=== PATIENT | male | born 1995 | race African-American/Black ===

== ENCOUNTER 2025-02-05 11:07 | Emergency (ER) | payer BC ==
--- NOTE | 2025-02-05 11:32 | ER ---
Nurse's Notes [facility] Name: Faisal Rivera Age: 29 yrs Sex: Male : 1995 Arrival Date: 02/05/2025 Time: 11:07 Bed IW1 Private MD: Diagnosis: Encounter for general adult medical examination without abnormal findings Presentation: 02/05 11:28 Chief complaint: Patient states: Here to have wellness exam. Coronavirus screen: Client ss denies travel out of the [place] in the last 14 days. Ebola Screen: Patient denies exposure to infectious person. Patient denies travel to an Ebola-affected area in the 21 days before illness onset. Initial Sepsis Screen: Does the patient meet any 2 criteria? No. Patient's initial sepsis screen is negative. Does the patient have a suspected source of infection? No. Patient's initial sepsis screen is negative. Risk Assessment: Do you want to hurt yourself or someone else? Patient reports no desire to harm self or others. Onset of symptoms is unknown. 11:28 Method Of Arrival: Ambulatory ss 11:28 Acuity: GERALD 5 ss Historical: - Allergies: 11:29 No Known Allergies; ss - Home Meds: 11:29 None [Active]; ss - PMHx: 11:29 None; ss - PSHx: 11:29 None; ss - Infectious Disease History:: Denies. - Social history:: Smoking status: Patient denies any tobacco usage or history of. Screenin:29 Abuse screen: Denies threats or abuse. Denies injuries from another. Nutritional ss screening: No deficits noted. Tuberculosis screening: Never had TB. Assessment: 11:29 General: Appears in no apparent distress. comfortable, Behavior is calm, cooperative. ss Pain: Denies pain. Neuro: Level of Consciousness is awake, alert, obeys commands, Oriented to person, place, time, situation. Derm: Skin is pink, warm \T\ dry. normal. Vital Signs: 11:28 BP 122 / 71; Pulse 69; Resp 14; Temp 98(TE); Pulse Ox 100% on R/A; Pain 0/10; ss 11:28 Pain Scale: Adult ss ED Course: 11:12 Patient arrived in ED. cj3 11:24 Yony Cardenas DO is Attending Physician. ms3 11:29 Triage completed. ss 11:29 Arm band placed on right wrist. ss 11:29 Patient has correct armband on for positive identification. ss 11:29 No provider procedures requiring assistance completed. Patient did not have IV access ss during this emergency room visit. 11:31 Javad Jaffe DO is Referral Physician. ms3 11:39 Sri Paiz, RN is Primary Nurse. ss Administered Medications: No medications were administered Medication: 11:29 VIS not applicable for this client. ss Outcome: 11:32 Discharge ordered by MD. ms3 11:39 Discharged to home ambulatory, ss 11:39 Condition: good 11:39 Discharge instructions given to patient, Instructed on discharge instructions, follow up and referral plans. Demonstrated understanding of instructions, follow-up care, 11:39 Patient left the ED. ss Signatures: Sri Paiz, PADMINI RN Yony Cardenas DO DO ms3 Mirela Christopher cj3 Corrections: (The following items were deleted from the chart) 11:30 11:28 Chief complaint: Patient states: Here to have wellness check up ss ss
--- NOTE | 2025-02-05 11:32 | EDPHYS ---
Physician Documentation [facility] Name: Faisal Rivera Age: 29 yrs Sex: Male : 1995 Arrival Date: 02/05/2025 Time: 11:07 Bed IW1 Private MD: ED Physician Yony Cardenas HPI: 02/05 11:39 This 30 yrs old Male presents to ER via Ambulatory with complaints of general exam. ms3 11:39 30-year-old male with no past medical history presents to the emergency department for ms3 general exam. Patient denies pain, nausea, vomiting, shortness of breath, chest pain.. Historical: - Allergies: 11: No Known Allergies; ss - Home Meds: 11: None [Active]; ss - PMHx: : None; ss - PSHx: 11: None; ss - Infectious Disease History:: Denies. - Social history:: Smoking status: Patient denies any tobacco usage or history of. ROS: 11:39 Constitutional: Negative for fever, and chills. Cardiovascular: Negative for chest ms3 pain, and palpitations. Respiratory: Negative for shortness of breath, cough, wheezing, and pleuritic chest pain, Abdomen/GI: Negative for abdominal pain, nausea, vomiting, diarrhea, and constipation, MS/Extremity: Negative for injury and deformity, Skin: Negative for injury, rash, and discoloration, Exam: 11:39 Constitutional: This is a well developed, well nourished patient who is awake, alert, ms3 and in no acute distress. Cardiovascular: Regular rate and rhythm with a normal S1 and S2. No gallops, murmurs, or rubs. Normal PMI, no JVD. No pulse deficits. Respiratory: Lungs have equal breath sounds bilaterally, clear to auscultation and percussion. No rales, rhonchi or wheezes noted. No increased work of breathing, no retractions or nasal flaring. Abdomen/GI: Soft, non-tender, with normal bowel sounds. No distension or tympany. No guarding or rebound. No evidence of tenderness throughout. Skin: Warm, dry with normal turgor. Normal color with no rashes, no lesions, and no evidence of cellulitis. MS/ Extremity: Pulses equal, no cyanosis. Neurovascular intact. Full, normal range of motion. Vital Signs: 11:28 BP 122 / 71; Pulse 69; Resp 14; Temp 98(TE); Pulse Ox 100% on R/A; Pain 0/10; ss 11:28 Pain Scale: Adult ss MDM: 11:30 Medical Screening Exam initiated ms3 11:39 Differential Diagnosis Medical screening exam. Data reviewed: vital signs, nurses ms3 notes, and as a result, I will discharge patient. Counseling: I had a detailed discussion with the patient and/or guardian regarding the historical points, exam findings, and any diagnostic results supporting the discharge/admit diagnosis, the need for outpatient follow up, to return to the emergency department if symptoms worsen or persist or if there are any questions or concerns that arise at home. Special discussion: I discussed with the patient/guardian in detail that at this point there is no indication for admission to the hospital. It is understood, however, that if the symptoms persist or worsen the patient needs to return immediately for re-evaluation. ED course: Discussed necessity of follow-up with Dr. Jaffe in 2 to 3 days. Patient understands and agrees with plan. All questions were answered. Return precautions discussed include worsening symptoms, or any other concerns.. Administered Medications: No medications were administered Disposition Summary: 02/05/25 11:32 Discharge Ordered Notes: Location: Home ms3 Condition: Stable ms3 Diagnosis - Encounter for general adult medical examination without abnormal findings ms3 Followup: ms3 - With: Javad Jaffe DO - When: 2 - 3 days - Reason: Continuance of care Discharge Instructions: - Discharge Summary Sheet ms3 - Medical Screening Exam ms3 Forms: - Medication Reconciliation Form ms3 - Antibiotic Education ms3 - Prescription Opioid Use ms3 - Patient Portal Instructions ms3 - Leadership Thank You Letter ms3 Signatures: Sri Paiz, RN RN Yony Mcintyre DO DO ms3
[2025-02-05 11:48] VITALS: BP 122/71; TEMP 98; O2SAT 100
== END 2025-02-05 11:39 | disposition home or self-care (01) ==
LOC: EDBD 11:07 → ER 11:07
DX: Z71.1 Person with feared health complaint in whom no diagnosis is made (principal)
CPT/HCPCS: 99282